=== PATIENT | female | born 1965 | race Caucasian/White ===

== ENCOUNTER 2021-05-29 12:07 | Emergency (ER) | payer OTHER ==
[~2021-05-29] VITALS: Ht 175.3 cm; Wt 68.5 kg
--- NOTE | 2021-05-29 12:39 | NUR ---
Dr. Vidales at bedside assessing patient.
[2021-05-29] MEDS ORDERED: FLUC200T8 PO (12:46)
[2021-05-29] MEDS ORDERED: METO-356 PO (12:46)
[2021-05-29] MEDS ORDERED: PANTOPRAZOLE SODIUM 40 MG TABLET.DR PO ONE (12:49)
[2021-05-29] MEDS ORDERED: MAG HYDROX/AL HYDROX/SIMETH 30 ML LIQUID UDC ONE (12:49)
[2021-05-29] MEDS: PANTOPRAZOLE SODIUM 40 MG TABLET.DR PO ONE (12:50)
[2021-05-29] MEDS: MAG HYDROX/AL HYDROX/SIMETH 30 ML LIQUID UDC PO ONE (12:50)
[2021-05-29] MEDS ORDERED: Amberen PO (12:55)
[2021-05-29] MEDS ORDERED: BIOT10004 PO (12:55)
[2021-05-29 13:14] LABS: MEAN CORPUSCULAR HEMOGLOBIN 31.3 uug (24.7-32.8); MEAN CORPUSCULAR VOLUME 92.3 fL (75.5-95.3); PLATELET COUNT (AUTO) 234 K/uL (179-408)
[2021-05-29 13:17] LABS: CARBON DIOXIDE 33 mmol/L (21-32); CHLORIDE 106 mmol/L (98-107); GLUCOSE 98 mg/dL (74-106); POTASSIUM 4.8 mmol/L (3.5-5.1); UREA NITROGEN, BLOOD 12 mg/dL (7-18)
[2021-05-29 13:26] LABS: ALANINE AMINOTRANSFERASE 83 U/L (14-59); ALKALINE PHOSPHATASE 105 U/L (50-136); ASPARTATE AMINOTRANSFERASE 101 U/L (15-37); BILIRUBIN,DIRECT 0.4 mg/dL (0.0-0.2); BILIRUBIN,TOTAL 0.7 mg/dL (0.2-1.0); LIPASE 85 U/L (73-393); TOTAL PROTEIN, SERUM 7.4 g/dL (6.4-8.2)
[2021-05-29] MEDS ORDERED: ONDA8TAB13 PO (15:51)
[2021-05-29] MEDS ORDERED: OMEP40CA21 PO (15:51)
--- NOTE | 2021-05-29 16:05 | NUR ---
Patient discharged to home in stable condition. Written and verbal after care instructions given. Patient verbalizes understanding of instructions. Stressed follow up or return to ER for worsening s/s.
[2021-05-29 16:07] VITALS: BP 125/80
== END 2021-05-29 16:07 | disposition home or self-care (01) ==
LOC: ER 12:07 → EDBD 12:07 → ER 16:07
DX: K29.70 Gastritis, unspecified, without bleeding (principal); K80.20 Calculus of gallbladder without cholecystitis without obstruction; R94.31 Abnormal electrocardiogram [ECG] [EKG]; D72.829 Elevated white blood cell count, unspecified; R79.89 Other specified abnormal findings of blood chemistry; I34.1 Nonrheumatic mitral (valve) prolapse
CPT/HCPCS: 36415; 71045; 83690; 84484; 85025; 93005; A4663